=== PATIENT | male | born 1985 | race Caucasian/White ===

== ENCOUNTER 2023-04-10 13:32 | Emergency (ER) | payer OTHER ==
[~2023-04-10] VITALS: Ht 170.2 cm; Wt 62.0 kg
[2023-04-10 13:47] VITALS: BP 98/61; PULSE 79; RESP 16; TEMP 98; O2SAT 100
[2023-04-10 14:10] LABS: BASOPHILS % 0.4 % (0.0-2.0); HEMATOCRIT. 40.7 % (42.0-52.0); HEMOGLOBIN. 14.6 g/dL (14.0-18.0); LYMPHOCYTES % 14.4 % (20.0-50.0); MEAN CORPUSCULAR HEMOGLOBIN 29.9 pg (28.0-32.0); MEAN CORPUSCULAR VOLUME 83.4 fL (80.0-94.0); MONOCYTES % 9.9 % (2.0-8.0); NEUTROPHILS % 74.3 % (40.0-76.0); PLATELET 368 x1000/uL (130-400); RED BLOOD CELL COUNT 4.88 mill/uL (4.7-6.1); RED CELL DISTRIBUTION WIDTH 14.1 % (11.6-14.6)
[2023-04-10 14:18] LABS: CHLORIDE 103 mEq/L (98-107)
[2023-04-10] MEDS ORDERED: METHOCARBAMOL 500MG TABLET PO ONE (16:00)
[2023-04-10] MEDS ORDERED: IBUPROFEN 600MG TABLET PO ONE (16:00)
[2023-04-10] MEDS ORDERED: IBUP-2029 MT (17:52)
[2023-04-10] MEDS ORDERED: METH-653 MT (17:52)
== END 2023-04-10 18:17 | disposition home or self-care (01) ==
LOC: ER 13:32
DX: R07.81 Pleurodynia (principal)
CPT/HCPCS: 36415; 71045; 80053; 84484; 85025; 99284

== ENCOUNTER 2025-01-29 16:11 | Emergency (ER) | payer MEDICAID, OTHER ==
[~2025-01-29] VITALS: Ht 172.7 cm; Wt 60.0 kg
[~2025-01-29 16:11] MED LIST: IBUP-2029 MT; METH-653 MT
[2025-01-29 16:23] VITALS: TEMP 36.7; O2SAT 100
[2025-01-29] MEDS ORDERED: IBUP-2029 MT (20:07)
[2025-01-29 20:48] VITALS: BP 137/64; PULSE 85; RESP 14; O2SAT 100
== END 2025-01-29 20:49 | disposition home or self-care (01) ==
LOC: ER 16:11
DX: R07.81 Pleurodynia (principal); J45.909 Unspecified asthma, uncomplicated; Y04.0XXA Assault by unarmed brawl or fight, initial encounter; Y93.89 Activity, other specified; Y92.89 Other specified places as the place of occurrence of the external cause; Y99.8 Other external cause status
CPT/HCPCS: 71101; 99283